=== PATIENT | female | born 1980 | race Caucasian/White ===

== ENCOUNTER 2024-11-02 05:50 | Inpatient (IN) | payer OTHER, SELFPAY ==
[2024-11-02] VITALS (11 sets, daily range): BP systolic 125–151; BP diastolic 94–109; PULSE 95–116; RESP 16–18; TEMP 36.4–36.7; O2SAT 89–97; BMI 22.8; BMI 22.3
--- NOTE | 2024-11-02 06:00 | EX.ED.DYSGE1 ---
HPI History of Present Illness Chief Complaint: Abd Pain PFSH PFS Medical History no medical history Home Medications ?Medication ?Instructions ?Recorded ?Last Taken ?Type NK 11/02/24 Unknown History Allergy/AdvReac Type Severity Reaction Status Date / Time No Known Allergies Allergy Verified 11/02/24 05:51 Family History no significant family his Surgical History no surgical history Social History Smoking Status: Never smoker EXAM Physical Exam Const Vital Signs: 11/02/24 05:51 11/02/24 05:55 Temperature 97.6 F L 97.6 F L Temperature Source Oral Oral Pulse Rate 116 H 114 H Respiratory Rate 18 18 Blood Pressure 151/109 H 151/109 H Blood Pressure Mean 123 123 Pulse Ox 95 97 Oxygen Delivery Method Room Air Room Air MDM MDM MDM Narrative Medical decision making narrative: HISTORY OF PRESENT ILLNESS: Chief complaint: Abdominal pain, cough, difficulty breathing 44-year-old female presents with 1 week of abdominal pain. She notes pain is severe and it causes her difficulty with sleeping. She also complains of cough and trouble breathing. Breathing issues started after abdominal pain worse when she ambulates. Denies bleeding diathesis. Denies vomiting or diarrhea. Denies history of abdominal surgeries. The patient denies recent surgery in the last 4 weeks or immobilization in the last 3 days, denies previous diagnosis of DVT or PE, hemoptysis, unilateral leg swelling or malignancy with treatment the last 6 months or palliative. No estrogen use noted. Patient denies sudden onset of pain, no tearing sensation, no migratory symptoms, no new numbness, weakness or loss of sensation. Patient denies family history or personal history of Connective tissue disorders (Marfan's Syndrome, Alo Danlos etc). REVIEW OF SYSTEMS: Pertinent positives: Abdominal pain, cough, shortness of breath Pertinent negatives: Chest pain, syncope PHYSICAL EXAM: Nursing triage notes reviewed, Vital signs reviewed Constitutional: please see mdm HENT: MMM Eyes: Pupils equal round and reactive to light, Extraocular muscles intact Neck: No stridor, no JVD, full neck ROM Lungs: Clear to auscultation, No wheezing or rales. No increased work of breathing, no conversational dyspnea, no accessory muscle use, no nasal flaring. No respiratory distress noted Heart: Regular rate and rhythm, No murmurs, No rubs and No gallops, 2+ distal pulses (radial, femoral, posterior tibial) in all extremities Abdomen: Soft, right lower quadrant TTP but no rigidity, rebound or guarding, no obvious peritoneal signs, no palpable pulsatile abdominal masses, no auscultated abdominal bruit : No CVAT Extremities: No edema Neuro: No new focal neurological deficits, cranial nerves II through XII intact, 5/5 strength in all present extremities. Intact sensation to light touch in all present extremities, 2+ reflexes bilateral patella tendons. Skin: No rash or lesions noted MEDICAL DECISION MAKING: Chief Complaint: please see HPI External records reviewed: Reviewed prior cardiovascular testing Factors affecting care: none reported Social determinants of health: none History obtained from others: none Consults: none MDM Narrative: Patient was initially tachycardic with heart rate of 116, hypertensive with blood pressure 181/109, otherwise afebrile and nontoxic-appearing. Exam with right upper quadrant TTP. I considered the following differential diagnosis: AAA, small bowel obstruction, abdominal perforation, appendicitis, pancreatitis, hepatobiliary pathology (acute cholecystitis), mesenteric ischemia, pathology (ie nephrolithiasis, pyelonephritis). ACS, arrhythmia, anemia, pneumonia. I obtained a broad lab and imaging workup to further elucidate etiology of the patient's complaints. Initially treated the patient 1 L normal saline, 4 mg IV morphine and 4 mg IV Zofran. ALL IMAGES (IF OBTAINED) HAVE BEEN PERSONALLY REVIEWED AND INTERPRETED BY MYSELF. CBC with leukocytosis, no anemia thrombocytopenia Lipase is wnl indicating no pancreatic inflammation. High-sensitivity troponin is negative, no evidence of myocardial ischemia EKG with sinus tachycardia rate 104, left ax deviation, prolonged QT interval QTc 481, no STEMI Awaiting remainder of labs including CMP, lipase, chest x-ray. The patient and/or family, caregivers express understanding. The patient and/or family, caregivers agrees with the plan. Shared decision making: I will have a discussion with the patient and or visitors regarding risk/benefits of further testing or admission. They will be made aware of of the risk/benefits inherent in this decision they will be given the opportunity to voice understanding. Total critical care time today provided was at least 0 minutes. This excludes separately billable procedures. Critical care time (if documented) is secondary to the patient having high probability of clinically significant/life threatening deterioration in the patient's condition which required my urgent intervention. Impression: 1. Right upper quadrant abdominal pain 2. Dyspnea 3. Tachycardia Dispo: Pending lab and imaging evaluation and final disposition. Signed out to a.m. physician. This note was generated with [employer] dictation software. It may contain incorrect words, spelling, and punctuation that were not noted in review of the chart prior to signing. Lab Data Labs: Laboratory Results - last 24 hr 11/02/24 05:56 WBC 9.6 RBC 5.14 Hgb 15.3 H Hct 45.5 MCV 88.5 MCH 29.8 MCHC 33.6 RDW Std Deviation 43.3 RDW Coeff of Raquel 13.4 Plt Count 288 MPV 12.6 H Immature Gran % (Auto) 0.300 Neut % (Auto) 61.3 Lymph % (Auto) 30.1 [place] % (Auto) 7.1 Eos % (Auto) 0.7 Baso % (Auto) 0.5 Absolute Neuts (auto) 5.9 Absolute Lymphs (auto) 2.88 Nucleated RBC % 0 Discharge Plan Triage Chief Complaint: Abd Pain ED Provider: Perico Ballesteros Dx/Rx/DC Orders Prescriptions: No Action NK Primary Care Provider: Daev Woods Referrals: Dave Woods DO [Primary Care Provider] - Print Language: Tuvaluan
--- NOTE | 2024-11-02 06:27 | EKG12_ITS ---
Test Reason : GENERAL Blood Pressure : */* mmHG Vent. Rate : 104 BPM Atrial Rate : 104 BPM P-R Int : 174 ms QRS Dur : 80 ms QT Int : 366 ms P-R-T Axes : 31 -23 88 degrees QTcB Int : 481 ms Sinus tachycardia Possible Left atrial enlargement ST & T wave abnormality, consider lateral ischemia Abnormal ECG Confirmed by ANGELITA YEN, DAFNE ([id number]), staff editor EDWARD ESCALONA ([id number]) on 11/05/2024 11:52:35 AM Referred By: Confirmed By: DAFNE GOLDSTEIN MD
[2024-11-02] MEDS: Ondansetron 4 MG/2 ML Vial IV (06:31)
[2024-11-02] MEDS: 0.9% Normal Saline (1000mL) 1,000 ML 999 ML IV (06:31)
--- NOTE | 2024-11-02 06:34 | US_ITS ---
PROCEDURE: GALLBLADDER 11/02/2024 REASON FOR EXAM: RUQ TTP COMPARISON: None. FINDINGS: Real-time ultrasound images. Hepatomegaly measuring 20.9 cm. Dilated supra hepatic IVC suggestive of dysfunction of the right cardiac cavities. Unremarkable flow in the main portal vein. Normal gallbladder wall thickness measuring 2.3 mm. Negative sonographic Gutierrez. No evidence of cholelithiasis or acute cholecystitis. Unremarkable pancreas. Unremarkable right kidney measuring 10.4 x 6.7 x 3.8 cm. Normal right renal cortical thickness measuring 1.2 cm. No evidence of right nephrolithiasis. Simple cyst in the upper pole of the right kidney measuring 1.6 x 1.6 x 0.8 cm. Right pleural effusion is noted. US/Gallbladder IMPRESSION: 1. Hepatomegaly. 2. Dilated supra hepatic IVC suggestive of dysfunction of the right cardiac cav ities. 3. No evidence of cholelithiasis or acute cholecystitis. 4. Right pleural effusion. Reading Location: [facility]
[2024-11-02 06:38] LABS: Absolute Lymphocyte Count 2.88 X10^3/uL (0.83-4.51); Absolute Neutrophil Count 5.9 X10^3/uL (2.0-7.7); Basophil# 0.05 X10^3/uL; Basophil% 0.5 % (0-1); Eosinophil# 0.07 X10^3/uL; Eosinophils% 0.7 % (0-5); Hematocrit 45.5 % (37-47); Hemoglobin 15.3 g/dL (12.0-15.0); Lymphocyte # 2.88 X10^3/ul (0.83-4.51); Lymphocyte % 30.1 % (19-41); Mean Corp Hgb Conc 33.6 g/dL (32-36); Mean Corpuscular Hgb 29.8 pg (27.0-32.0); Mean Corpuscular Volume 88.5 fL (81-99); Mean Platelet Vol. 12.6 fl (6.2-12.0); Monocyte# 0.68 X10^3/uL; Monocyte% 7.1 % (0-10); NRBC Flagged by Analyzer 0 % (0-5); Neutrophil # 5.86 X10^3/uL (2.7-7.7); Neutrophil % 61.3 % (47-70); Platelet Count 288 K/mm3 (150-450); RBC Distribution Width CV 13.4 % (11.6-14.6); RBC Distribution Width SD 43.3 fl (35.1-43.9); Red Blood Count 5.14 M/mm3 (4.2-5.4); White Blood Count 9.6 K/mm3 (4.4-11.0)
[2024-11-02 06:55] LABS: AST(SGOT) 33 U/L (<=31); Alanine Aminotransfer ALT/SGPT 60 U/L (<=34); Albumin, Serum 4.4 g/dL (3.5-5.0); Alkaline Phosphatase 61 U/L (35-104); Anion Gap 14 (5-15); BUN 11 mg/dL (4-19); BUN/Creat Ratio 17.8 RATIO (10-20); Bilirubin, Direct 0.31 mg/dL (0.00-0.30); Calcium,Total 9.1 mg/dL (7.6-11.0); Carbon Dioxide 20.9 mmol/L (21.0-32.0); Chloride 103 mmol/L (98-108); Creatinine, Serum 0.61 mg/dL (0.70-1.20); EST Glomerular Filtration Rate 112 (>60); Estimated Creatinine Clearance 120.43 ml/min (50-250); Globulin 2.5 g/dL (2.2-4.2); Glucose 122 mg/dL (70-99); Lipase 15 U/L (13-75); Potassium 3.6 mmol/L (3.3-5.1); Protein, Total 6.9 g/dL (5.9-8.4); Sodium Level 138 mmol/L (133-145); Troponin T High Sensitivity 12 ng/L (<=14)
--- NOTE | 2024-11-02 06:58 | RAD_ITS ---
PROCEDURE: CHEST 1 VIEW (PORTABLE) 11/02/2024 REASON FOR EXAM: SOB TECHNIQUE: Frontal view of the chest. COMPARISON: None. FINDINGS: Moderate cardiomegaly. Moderate central pulmonary venous congestion. Minimal bilateral pleural effusions. Passive atelectatic airspace disease of the lower lobes. Normal mediastinum and mello. Normal visualized pulmonary arteries. Normal visualized aortic arch and descending thoracic aorta. Normal visualized thoracic spine. Normal visualized ribs, clavicles, and shoulders. There is no demonstrated abnormality of the visualized soft tissue structures of the upper abdomen. RAD/Chest 1 View (Portable) IMPRESSION: 1. Moderate cardiomegaly. 2. Moderate central pulmonary venous congestion. 3. Minimal bilateral pleural effusions. 4. Passive atelectatic airspace disease of the lower lobes. Reading Location: [place] [id number]
[2024-11-02] MEDS: Morphine 4 MG/ML Syringe IV (07:10)
[2024-11-02 07:24] LABS: D-Dimer Quantitative (DVT/PE) 1.05 FEU/ug/m (0.27-0.49)
--- NOTE | 2024-11-02 07:27 | CT_ITS ---
PROCEDURE: CTA CHEST W/WO CONTRAST 11/02/2024 REASON FOR EXAM: SOB, ELEVATED DIMER TECHNIQUE: CTA axial imaging of the chest with intravenous contrast. Multiplanar and multisequence images were obtained. 3D, 3D post processing, 3D reconstructions, Maximum intensity projection (MIPs) Volume rendering and Shaded surface rendering was provided. PATIENT PREPARATION: Per protocol CONTRAST: Omnipaque 350 VOLUME: 100 mL Not Provided Gauge IV One or more dose reduction techniques were used (e.g., Automated exposure control, adjustment of the mA and/or kV according to patient size, use of iterative reconstruction technique). COMPARISON: None FINDINGS: Hardware: None Lymph nodes: No suspicious adenopathy. Heart: Mild cardiomegaly. No coronary artery calcifications. Thoracic Aorta: No thoracic aortic aneurysm or dissection. Pulmonary Vessels: No large central pulmonary emboli are identified. Contrast timing is suboptimal for evaluation of more distal branches. Most Proximal Level of Embolus (if embolus present): None Lungs and Airways: Central airways are patent without endobronchial lesions. Diffuse mild-moderate interlobular septal thickening. Moderate right and small left pleural effusions with atelectasis. Scattered ground-glass opacities, predominantly in the lower lobes constellation of findings, compatible with pulmonary edema. No pneumothorax. Upper Abdomen: No acute findings in the upper abdomen. Bones: Bone windows are unremarkable. CT/CTA Chest W/WO Contrast IMPRESSION: 1. No evidence of acute pulmonary embolism. 2. Moderate right and small left pleural effusions, bibasilar atelectasis, mult ifocal ground-glass opacities and interlobular septal thickening. Constellation of findings, compatible with pulmonary edema. 3. Mild cardiomegaly. Reading [facility]
[2024-11-02 07:37] LABS: Bacteria 0 SEEN /hpf (None Seen)
[2024-11-02 08:10] LABS: Color, Urine Yellow (Yellow); Glucose, Dipstick Normal (Normal); Ketone-Dipstick 5 mg/dl (Negative); Leukocyte Esterase-Dipstick Negative /ul (Negative); Nitrite-Dipstick Negative (Negative); Occult Blood-Urine 25 /ul (Negative); Protein-Dipstick 100 mg/dl (Negative); Urine Bilirubin Dipstick Negative (Negative); Urine Clarity Clear (Clear); Urine Urobilinogen Normal (Normal)
[2024-11-02 08:21] LABS: Mucous, Urine 2+ /hpf (<or=2+); Red Blood Cells-Urine 0-5 SEEN /hpf (0-5); Squamous Epithelial Cells - UA 0-5 SEEN /hpf (5-10); White Blood Cells 0-5 SEEN /hpf (0-5)
[2024-11-02 08:50] LABS: Pro- Brain NATRIURETIC PEPTIDE 4866 pg/mL (<=450)
[2024-11-02] MEDS: Furosemide 40 MG/4 ML Vial IV ×3 (09:16→21:05)
--- NOTE | 2024-11-02 09:37 | HP.PCM.HOS_ITS ---
HPI - General General Date of Admission: 11/02/24 Date of Service: 11/02/24 Chief Complaint: Right upper quadrant pain/shortness of breath HPI Narrative VIRIDIANA WICK, is a 44 F who presented to the emergency room apartment at [facility] on 11/02/2024 with a chief complaint of right upper quadrant pain and shortness of breath. She states over the last 4 months she has noticed that she has had slowly increasing swelling, weight gain, exertional shortness of breath. She does have a family history of heart disease however is unable to describe what kind of heart disease. She does not have any chest pain. She has no nausea or vomiting. She does complain of some tightness around her abdomen when she walks and orthopnea. She has never smoked. Her last was 9 years ago. She does not have any recent viral illnesses. Vital signs on presentation showed temperature of 97.6, heart rate 116, respiratory rate was 18, blood pressure was 151/109 and pulse ox was 95% on room air. CBC shows erythrocytosis but is otherwise unremarkable. Chemistry panel shows normal renal function. LFTs are slightly abnormal with an AST of 33, ALT of 60, direct bilirubin of 0.31 with a normal total bilirubin. Troponin was 12 but her BNP was markedly elevated at 4866. Her UA is not consistent with infection. Chest x-ray showed moderate cardiomegaly with moderate central pulmonary venous congestion, bilateral pleural effusions right greater than left and compression atelectasis from effusions. Gallbladder ultrasound was done due to right upper quadrant pain and showed hepatomegaly with a dilated suprahepatic IVC and a right pleural effusion. CTA of the chest showed moderate right and small left pleural effusion with compressive atelectasis and findings consistent with pulmonary edema, mild cardiomegaly and pulmonary congestion. No PE was identified. EKG was sinus tachycardia with normal intervals and T wave inversions in the lateral leads. No previous EKG is available for comparison. [facility] Medical History no medical history no medical history Home Medications ?Medication ?Instructions ?Recorded ?Last Taken ?Type REDOX 4 oz PO DAILY SUPP 11/02/24 11/01/24 History aloe vera 25 mg capsule 25 mg PO DAILY 11/02/24/12/31 History vitamin B complex (Complex B-100 1 tab PO DAILY 11/01/24 History tablet,extended release) Allergy/AdvReac Type Severity Reaction Status Date / Time No Known Allergies Allergy Verified 11/02/24 05:51 Family History (Updated 11/02/24 @ 16:[address] Caitlyn Joel DO) Other Heart disease Family History no significant family his Surgical History no surgical history no surgical history Social History (Updated 11/02/24 @ 16:[address] Caitlyn Joel DO) household members: family housing: house current occupational status: unemployed other: [employer] Smoking Status: Never smoker alcohol intake: never substance use type: does not use ROS Constitutional Constitutional: Reports change in weight and fatigue; Denies anorexia, chills, fever(s), malaise, night sweats, weakness or other Eyes Eyes: Denies blurry vision, change in eye color, change in vision, discharge from eye(s), double vision, erythema, eye pain, loss of vision or other ENT HEENT: Denies abnormal hearing, dysphagia, ear pain, epistaxis, headache(s), hearing loss, nasal congestion, nasal discharge, post nasal drip, sinus pressure, sore throat or other Cardiovascular Cardiovascular: Reports edema and orthopnea; Denies chest pain, claudication, dyspnea on exertion, lightheadedness, palpitations, paroxysmal nocturnal dyspnea, rapid heart rate, syncope or other Respiratory/Chest Respiratory/Chest: Reports cough and shortness of breath with exertion; Denies dyspnea, excessive phlegm production, hemoptysis, productive cough, shortness of breath at rest, wheezing or other Gastrointestinal Gastrointestinal: Reports abdominal pain; Denies coffee ground emesis, constipation, diarrhea, dyspepsia, hematemesis, hematochezia, loose stools, melena, nausea, vomiting or other Genitourinary Genitourinary: Denies burning urination, difficulty urinating, dysuria, hematuria, nocturia, urinary frequency, urinary hesitancy, urinary incontinence, urinary urgency or other Musculoskeletal Musculoskeletal: Denies arthralgias, back pain, joint pain, joint stiffness, joint swelling, myalgias, neck pain or other Neurologic Neurologic: Denies abnormal gait, abnormal speech, confusion, disequilibrium, dizziness, focal weakness, headache(s), numbness, paresthesias, seizure-like activity, seizures, syncope, tingling, tremor(s) or other Psychiatric Psychiatric: Denies anxiety, depression, homicidal ideation, suicidal ideation or other Endocrine Endocrinology: Denies change in body appearance, cold intolerance, excessive sweating, heat intolerance, polydipsia, polyuria or other Hematologic/Lymphatic Hematologic/Lymphatic: Denies anemia, easy bleeding, easy bruising, lymphadenopathy or other Allergic/Immunologic Allergic/Immunologic: Denies rhinitis, hives, eczemia, asthma or other Vital Signs Vital Signs Vital Signs: 11/02/24 05:51 11/02/24 05:55 11/02/24 07:34 Temperature 97.6 F L 97.6 F L Temperature Source Oral Oral Pulse Rate 116 H 114 H Respiratory Rate 18 18 Blood Pressure 151/109 H 151/109 H Blood Pressure Mean 123 123 Pulse Ox 95 97 89 Oxygen Delivery Method Room Air Room Air Room Air 11/02/24 07:37 11/02/24 08:47 Temperature Temperature Source Pulse Rate 96 Respiratory Rate 18 Blood Pressure 127/96 H Blood Pressure Mean 106 Pulse Ox 92 96 Oxygen Delivery Method Room Air Room Air Weight Weight: 70 kg Body Mass Index (BMI) 22.8 Physical Exam Const alert, oriented x3, no apparent distress, average body habitus and well nourished; Negative for healthy appearing Constitutional Narrative: Middle-aged, Church, white female, sitting up in bed, appears somewhat older than stated age, at bedside, appears nontoxic, pleasant General Appearance: cooperative HEENT normocephalic, head/scalp atraumatic, hearing grossly normal bilaterally and moist oral mucous membranes HEENT Narrative: Dark circles around both eyes, Mallampati is 2, no thrush Eyes EOMs intact bilaterally and conjunctivae normal Eyes Narrative: No scleral icterus Neck supple Neck Narrative: JVD is present, positive hepatojugular reflex, trachea midline, no thyroid enlargement noted Resp normal respiratory effort, no retractions, no use of accessory muscles and No clear to auscultation bilaterally Resp Narrative: Diminished bases bilaterally with crackles at bases bilaterally Auscultation: crackles; Negative for rhonchi or wheezes Cardio regular rhythm, S1 normal heart sound, S2 normal heart sound, no murmurs, no rub and no clicks; Negative for regular rate or no gallops Cardio Narrative: Mild tachycardia, positive S3, no ectopy noted GI normal to inspection, nondistended, normoactive bowel sounds and soft to palpation GI Narrative: Tenderness right upper quadrant Extremity Extremity Narrative: Bilateral lower extremity pitting edema at ankles trace to 1+ no cyanosis or clubbing Skin no jaundice, no petechiae and no mottling Skin Narrative: Skin is pale with no significant changes related to sun exposure Neuro oriented x3, moves all extremities and no focal motor deficits Speech: speech normal Psych affect normal Psych Narrative: Very pleasant, interacts appropriately Results Lab / Micro Data 11/02/24 05:56 11/02/24 05:56 Labs: Laboratory Results - last 24 hr 11/02/24 05:56: WBC 9.6, RBC 5.14, Hgb 15.3 H, Hct 45.5, MCV 88.5, MCH 29.8, MCHC 33.6, RDW Std Deviation 43.3, RDW Coeff of Raquel 13.4, Plt Count 288, MPV 12.6 H, Immature Gran % (Auto) 0.300, Neut % (Auto) 61.3, Lymph % (Auto) 30.1, [place] % (Auto) 7.1, Eos % (Auto) 0.7, Baso % (Auto) 0.5, Absolute Neuts (auto) 5.9, Absolute Lymphs (auto) 2.88, Nucleated RBC % 0, D-Dimer Quant (PE/DVT) 1.05 H*, Sodium 138, Potassium 3.6, Chloride 103, Carbon Dioxide 20.9 L, Anion Gap 14, BUN 11, Creatinine 0.61 L, Estim Creat Clear Calc 120.43, Est GFR (MDRD) Non-Af 112, BUN/Creatinine Ratio 17.8, Glucose 122 H, Calcium 9.1, Total Bilirubin 0.80, Direct Bilirubin 0.31 H, AST 33 H, ALT 60 H, Alkaline Phosphatase 61, Troponin T High Sens 12, NT pro BNP II 4866 H, Total Protein 6.9, Albumin 4.4, Globulin 2.5, Lipase 15 11/02/24 07:30: Urine Color Yellow, Urine Clarity Clear, Urine pH 5.0, Ur Specific [place] 1.030, Urine Protein 100 H, Urine Glucose (UA) Normal, Urine Ketones 5 H, Urine Occult Blood 25 H, Urine Nitrite Negative, Urine Bilirubin Negative, Urine Urobilinogen Normal, Ur Leukocyte Esterase Negative, Urine RBC 0-5 SEEN, Urine WBC 0-5 SEEN, Ur Squamous Epith Cells 0-5 SEEN, Urine Bacteria 0 SEEN, Urine Mucus 2+ Imaging Radiology Impression Gallbladder Ultrasound 11/02/24 06:34 IMPRESSION: 1. Hepatomegaly. 2. Dilated supra hepatic IVC suggestive of dysfunction of the right cardiac cavities. 3. No evidence of cholelithiasis or acute cholecystitis. 4. Right pleural effusion. Reading Location: [place] [id number] Chest X-Ray 11/02/24 06:58 IMPRESSION: 1. Moderate cardiomegaly. 2. Moderate central pulmonary venous congestion. 3. Minimal bilateral pleural effusions. 4. Passive atelectatic airspace disease of the lower lobes. Reading Location: [place] [address] Chest CTA 11/02/24 07:27 IMPRESSION: 1. No evidence of acute pulmonary embolism. 2. Moderate right and small left pleural effusions, bibasilar atelectasis, multifocal ground-glass opacities and interlobular septal thickening. Constellation of findings, compatible with pulmonary edema. 3. Mild cardiomegaly. Reading Location: [facility] Assessment & Plan Assessment/Plan (1) Pleural effusion, bilateral: (2) Elevated brain natriuretic peptide (BNP) level: (3) Abnormal EKG: (4) Exertional dyspnea: (5) Orthopnea: (6) Edema: (7) Erythrocytosis: (8) Tachycardia: (9) Elevated blood pressure reading: PLAN: Plan Shortness of breath/edema/pleural effusion/elevated BNP - Suspect related to acute decompensated heart failure of unknown type - Check echocardiogram - Lasix 40 mg 3 times daily - Check TSH to exclude high-output heart failure from thyroid disease - Fluid restriction to 1750 cc daily - Sodium restricted diet - Lower extremity Reginald bandages - Start metoprolol 25 mg p.o. twice daily - Once more stable could consider starting Jardiance Bilateral pleural effusions - suspect related to above - Hopefully will improve with diuresis - If not right pleural effusion may need thoracentesis Abnormal EKG - EKG shows T wave inversion in lateral leads - Should receive ischemic workup with stress test once more clinically stable with regards to her heart failure -Consider next 24 to 48 hours - Will cycle cardiac enzymes - Check lipid profile Right upper quadrant pain/mild transaminitis - Suspect related to passive congestion - Ultrasound is unremarkable other than hepatomegaly which again may be related to passive congestion Tachycardia - Suspect related to underlying etiology - Metoprolol 25 p.o. twice daily initiated for heart failure as patient is not severely decompensated - Continue to monitor on telemetry Elevated blood pressure without diagnosis of hypertension - Metoprolol added - Suspect may need REGINALD inhibitor and Aldactone if echo shows depressed EF to establish goal-directed therapy -Would consider adding this if blood pressure remains elevated DVT prophylaxis - Subcu enoxaparin 40 daily CODE STATUS - Full code Charges/Coding Visit Charges Inpatient E&M: 85682 Init Hosp L2
--- NOTE | 2024-11-02 10:26 | ECHOCS_ITS ---
Reason For Study Reason For Study: CHF Procedure This was a 2D Doppler, Color Flow transthoracic echocardiogram. Contrast injection was performed. Exam performed portable in patient room. Left Ventricle Moderately dilated left ventricle. There appears to be a small LV apical thrombus. The estimated ejection fraction is 20 %. There is evidence of diastolic dysfunction. There is severe global hypokinesis of the left ventricle. Right Ventricle Normal RV size. Normal systolic function. Atria The left and right atria are normal. No doppler evidence for ASD. Mitral Valve There is no mitral valve stenosis. Trivial mitral valve insufficiency. Tricuspid Valve There is no tricuspid stenosis. Trivial tricuspid valve insufficiency. Pulmonary artery systolic pressure is 20 mmHg. Aortic Valve Trisinus/trileaflet aortic valve. There is no aortic stenosis. No aortic valve insufficiency. Pulmonic Valve There is no pulmonic valvular stenosis. No pulmonic valve insufficiency. Great Vessels Normal aortic root. Pericardium/Pleural Trivial pericardial effusion. Medication Diluted definity 3ml given slow IV push to enhance endocardial definition. MMode/2D Measurements & Calculations LVIDd: 5.1 cm IVSd: 0.92 cm Ao root diam: 3.0 cm LVIDs: 4.7 cm LVPWd: 0.91 cm RVDd: 2.7 cm FS: 7.8 % LAV(MOD-bp): 33.1 ml LVAd ap4: 31.6 cm2 SV(MOD-sp4): 28.2 ml LAV(MOD-bp) Indexed: 17.9 ml/m2 LVLd ap4: 7.0 cm SI(MOD-sp4): 15.3 ml/m2 LAV(MOD-sp2): 48.0 ml EDV(MOD-sp4): 114.7 ml LAV(MOD-sp4): 23.5 ml EDV(sp4-el): 120.1 ml LVAs ap4: 26.3 cm2 LVLs ap4: 6.7 cm ESV(MOD-sp4): 86.5 ml ESV(sp4-el): 88.1 ml EF(MOD-sp4): 24.6 % EF(sp4-el): 26.6 % SV(sp4-el): 32.0 ml LA A4 area: 11.5 cm2 LA dimension(2D): 3.2 cm RA A4 area: 9.3 cm2 TAPSE: 1.2 cm Doppler Measurements & Calculations MV E max mayo: 48.3 cm/sec Lat Peak E' Mayo: 5.4 cm/sec Med Peak E' Mayo: 7.0 cm/sec E/E' lat: 8.9 E/E' med: 6.9 MV V2 max: 81.7 cm/sec Ao V2 max: 105.5 cm/sec LV V1 max: 84.2 cm/sec MV max P.7 mmHg Ao max P.4 mmHg LV V1 max P.8 mmHg MV V2 mean: 50.6 cm/sec Ao V2 mean: 76.3 cm/sec LV V1 mean P.6 mmHg MV mean P.2 mmHg Ao mean P.6 mmHg LV V1 mean: 58.7 cm/sec MV V2 VTI: 13.6 cm Ao V2 VTI: 18.9 cm LV V1 VTI: 13.9 cm AV (velocity ratio): 0.73 MR max mayo: 433.8 cm/sec PA V2 max: 82.4 cm/sec TR max mayo: 208.4 cm/sec MR max P.4 mmHg TR max P.4 mmHg MR mean mayo: 321.7 cm/sec MR mean P.8 mmHg MR VTI: 125.1 cm ECHO/Echo Complete W/ Contrast Interpretation Summary Moderately dilated left ventricle. The estimated ejection fraction is 20 %. There is severe global hypokinesis of the left ventricle. There is evidence of diastolic dysfunction. Trivial mitral valve insufficiency. There appears to be a small LV apical thrombus Ordering Physician: Caitlyn Joel Performed By: Collin Rooney RCS
[2024-11-02] MEDS: Enoxaparin 40 MG/0.4 ML Syringe SC (11:07)
[2024-11-02] MEDS: Acetaminophen 325 MG Tablet 650 MG PO ×2 (11:09→20:53)
[2024-11-02] MEDS: 0.9% Saline Lock 10 ML Syringe IV (14:07)
[2024-11-02] MEDS: Metoprolol Tartrate 25 MG Tablet 12.5 MG PO (16:45)
[2024-11-02] MEDS: oxyCODONE 5 MG Tablet PO (16:48)
[2024-11-02 17:29] LABS: Troponin T High Sens 2 HR 13 ng/L (<=14)
[2024-11-02 20:09] LABS: Troponin T High Sens 4 HR 13 ng/L (<=14)
[2024-11-02] MEDS: Metoprolol Tartrate 25 MG Tablet PO (21:05)
[2024-11-02 21:44] LABS: ALB/GLOB Ratio 1.9 RATIO (0.9-2.4); AST(SGOT) 27 U/L (<=31); Alanine Aminotransfer ALT/SGPT 62 U/L (<=34); Albumin, Serum 4.5 g/dL (3.5-5.0); Alkaline Phosphatase 59 U/L (35-104); Anion Gap 14 (5-15); BUN 8 mg/dL (4-19); BUN/Creat Ratio 11.5 RATIO (10-20); Calcium,Total 8.9 mg/dL (7.6-11.0); Carbon Dioxide 26.6 mmol/L (21.0-32.0); Chloride 98 mmol/L (98-108); Creatinine, Serum 0.73 mg/dL (0.70-1.20); EST Glomerular Filtration Rate 103 (>60); Estimated Creatinine Clearance 100.64 ml/min (50-250); Globulin 2.3 g/dL (2.2-4.2); Glucose 109 mg/dL (70-99); Phosphorus 3.8 mg/dL (2.7-4.5); Potassium 3.6 mmol/L (3.3-5.1); Protein, Total 6.8 g/dL (5.9-8.4); Sodium Level 138 mmol/L (133-145); Total Bilirubin 0.76 mg/dL (0.00-1.30)
[2024-11-03] VITALS (8 sets, daily range): BP systolic 103–127; BP diastolic 74–104; PULSE 87–138; RESP 15–16; TEMP 36.4; O2SAT 94–96; BMI 22.2
--- NOTE | 2024-11-03 03:35 | EKG12_ITS ---
Test Reason : PRE HEART CATH Blood Pressure : */* mmHG Vent. Rate : 95 BPM Atrial Rate : 95 BPM P-R Int : 174 ms QRS Dur : 88 ms QT Int : 384 ms P-R-T Axes : 25 -54 212 degrees QTcB Int : 482 ms Normal sinus rhythm Left anterior fascicular block T wave abnormality, consider inferior ischemia T wave abnormality, consider anterolateral ischemia Prolonged QT Abnormal ECG When compared with ECG of 03-Nov-2024 03:41, MANUAL COMPARISON REQUIRED DATA IS UNCONFIRMED Confirmed by PERLITA YEN, ARGELIA ([id number]), news assignment editor EDWARD ESCALONA ([id number]) on 11/05/2024 1:23:26 PM Referred By: Confirmed By: ARGELIA BHAT MD
--- NOTE | 2024-11-03 03:41 | EKG12_ITS ---
Test Reason : TACHY Blood Pressure : */* mmHG Vent. Rate : 129 BPM Atrial Rate : 129 BPM P-R Int : 152 ms QRS Dur : 86 ms QT Int : 348 ms P-R-T Axes : * -39 3 degrees QTcB Int : 509 ms Atrial tachycardia Left axis deviation Minimal voltage criteria for LVH, may be normal variant ( [place] product ) Anterior infarct , age undetermined ST & T wave abnormality, consider lateral ischemia Abnormal ECG Confirmed by PERLITA YEN, ARGELIA ([id number]), editorial director CATIA SNYDER ([id number]) on 11/06/2024 1:36:13 PM Referred By: KENYETTA Confirmed By: ARGELIA BHAT MD
[2024-11-03] MEDS: Metoprolol Tartrate 5 MG/5 ML Vial 2.5 MG IV (03:56)
[2024-11-03] MEDS: 0.9% Saline Lock 10 ML Syringe IV (03:57)
[2024-11-03 04:24] LABS: Absolute Lymphocyte Count 1.89 X10^3/uL (0.83-4.51); Basophil# 0.04 X10^3/uL; Basophil% 0.5 % (0-1); Eosinophil# 0.06 X10^3/uL; Eosinophils% 0.7 % (0-5); Hematocrit 44.3 % (37-47); Hemoglobin 15.2 g/dL (12.0-15.0); Lymphocyte # 1.89 X10^3/ul (0.83-4.51); Lymphocyte % 21.4 % (19-41); Mean Corp Hgb Conc 34.3 g/dL (32-36); Mean Corpuscular Hgb 29.8 pg (27.0-32.0); Mean Corpuscular Volume 86.9 fL (81-99); Mean Platelet Vol. 10.9 fl (6.2-12.0); Monocyte# 0.87 X10^3/uL; Monocyte% 9.8 % (0-10); NRBC Flagged by Analyzer 0 % (0-5); Neutrophil # 5.96 X10^3/uL (2.7-7.7); Neutrophil % 67.3 % (47-70); Platelet Count 415 K/mm3 (150-450); RBC Distribution Width CV 13.2 % (11.6-14.6); RBC Distribution Width SD 42.1 fl (35.1-43.9); White Blood Count 8.9 K/mm3 (4.4-11.0)
[2024-11-03 04:45] LABS: Troponin T High Sensitivity 11 ng/L (<=14)
[2024-11-03 04:48] LABS: ALB/GLOB Ratio 1.9 RATIO (0.9-2.4); AST(SGOT) 32 U/L (<=31); Alanine Aminotransfer ALT/SGPT 60 U/L (<=34); Albumin, Serum 4.4 g/dL (3.5-5.0); Alkaline Phosphatase 57 U/L (35-104); Anion Gap 12 (5-15); BUN 8 mg/dL (4-19); Calcium,Total 9.1 mg/dL (7.6-11.0); Carbon Dioxide 28.9 mmol/L (21.0-32.0); Chloride 97 mmol/L (98-108); Creatinine, Serum 0.72 mg/dL (0.70-1.20); EST Glomerular Filtration Rate 105 (>60); Estimated Creatinine Clearance 102.03 ml/min (50-250); Globulin 2.3 g/dL (2.2-4.2); Glucose 104 mg/dL (70-99); Magnesium 1.8 mg/dL (1.5-2.2); Phosphorus 3.5 mg/dL (2.7-4.5); Potassium 3.4 mmol/L (3.3-5.1); Protein, Total 6.7 g/dL (5.9-8.4); Sodium Level 138 mmol/L (133-145); Total Bilirubin 0.88 mg/dL (0.00-1.30)
[2024-11-03 05:08] LABS: Cholesterol 215 mg/dL (<=200); High Density Lipoprotein 48 mg/dL; Low Density Lipoprotein Calc. 153 mg/dL; Triglycerides 69 mg/dL; Very Low Density Lipoprotein 14 mg/dL (5-40); cholesterol:hdl ratio screen 4.47
[2024-11-03] MEDS: Furosemide 40 MG/4 ML Vial IV ×2 (05:52→13:37)
[2024-11-03 09:02] LABS: Troponin T High Sens 4 HR 11 ng/L (<=14)
[2024-11-03] MEDS: Enoxaparin 40 MG/0.4 ML Syringe SC (09:44)
[2024-11-03] MEDS: Metoprolol Tartrate 25 MG Tablet PO ×2 (09:44→21:08)
--- NOTE | 2024-11-03 11:12 | PCM.PN.HOSP ---
Reason for Visit Reason for Visit: Diagnoses Secondary polycythemia (11/02/24) Pleural effusion, not elsewhere classified (11/02/24) Tachycardia, unspecified (11/02/24) Elevated blood-pressure reading, without diagnosis of hypertension (11/02/24) Orthopnea (11/02/24) Other forms of dyspnea (11/02/24) Edema, unspecified (11/02/24) Other specified abnormal findings of blood chemistry (11/02/24) Abnormal electrocardiogram [ECG] [EKG] (11/02/24) Subjective Subjective Saw patient at bedside this morning, present. Patient was having her echo done when I saw her. She reported very good urine output on the IV Lasix and felt better today compared to yesterday. Denied any shortness of breath at rest or any upper abdominal pain at this time. Noted that she has not had much of cough or sputum production this morning. She denied any other acute concerns at this time. Reevaluated patient in the afternoon and was noted that patient had developed sinus tachycardia with rate to the 120s to 130s. She noted some lightheadedness and dizziness with this. Was suspected that patient had been over diuresed given significant urine output on IV Lasix. Lasix was discontinued and patient was given IV fluids back. Objective Data Objective Data Vital Signs: Vital Signs Temp Pulse Resp BP Pulse Ox O2 Del Method 97.6 F L 110 H 15 103/74 94 Room Air 11/03/24 09:15 11/03/24 09:44 11/03/24 09:15 11/03/24 09:15 11/03/24 09:15 11/03/24 09:15 Oxygen Delivery Method Room Air Weight: 68.4 kg Body Mass Index (BMI) 22.2 Intake & Output: Intake and Output for Last 24 Hours 11/01/24 11/02/24 11/03/24 23:59 23:59 23:59 Intake Total 1000 / 1000 Balance 1000 / 1000 Lab / Micro Data 11/03/24 04:14 11/03/24 04:14 Labs: Laboratory Results - last 24 hr 11/02/24 05:56: Free T4 1.20 11/02/24 17:05: Troponin T Hi Sens 2 Hr 13 11/02/24 19:48: Sodium 138, Potassium 3.6, Chloride 98, Carbon Dioxide 26.6, Anion Gap 14, BUN 8, Creatinine 0.73, Estim Creat Clear Calc 100.64, Est GFR (MDRD) Non-Af 103, BUN/Creatinine Ratio 11.5, Glucose 109 H, Calcium 8.9, Phosphorus 3.8, Total Bilirubin 0.76, AST 27, ALT 62 H, Alkaline Phosphatase 59, Troponin T Hi Sens 4Hr 13, Total Protein 6.8, Albumin 4.5, Globulin 2.3, Albumin/Globulin Ratio 1.9 11/03/24 04:14: WBC 8.9, RBC 5.10, Hgb 15.2 H, Hct 44.3, MCV 86.9, MCH 29.8, MCHC 34.3, RDW Std Deviation 42.1, RDW Coeff of Raquel 13.2, Plt Count 415, MPV 10.9, Immature Gran % (Auto) 0.300, Neut % (Auto) 67.3, Lymph % (Auto) 21.4, [place] % (Auto) 9.8, Eos % (Auto) 0.7, Baso % (Auto) 0.5, Absolute Neuts (auto) 6.0, Absolute Lymphs (auto) 1.89, Nucleated RBC % 0, Sodium 138, Potassium 3.4, Chloride 97 L, Carbon Dioxide 28.9, Anion Gap 12, BUN 8, Creatinine 0.72, Estim Creat Clear Calc 102.03, Est GFR (MDRD) Non-Af 105, BUN/Creatinine Ratio 11.0, Glucose 104 H, Calcium 9.1, Phosphorus 3.5, Magnesium 1.8, Total Bilirubin 0.88, AST 32, ALT 60 H, Alkaline Phosphatase 57, Troponin T High Sens 11 D, Total Protein 6.7, Albumin 4.4, Globulin 2.3, Albumin/Globulin Ratio 1.9, Triglycerides 69, Cholesterol 215 H, LDL Cholesterol, Calc 153, VLDL Cholesterol 14, HDL Cholesterol 48, Cholesterol/HDL Ratio 4.47 11/03/24 08:06: Troponin T Hi Sens 4Hr 11 Physical Exam Const alert, oriented x3, no apparent distress, average body habitus, healthy appearing and well nourished Constitutional Narrative: Pleasant middle-aged female, mildly fatigued appearing but otherwise sitting back comfortably in bed, conversing normally, in no acute distress. General Appearance: cooperative, comfortable, well kempt and well developed HEENT normocephalic, head/scalp atraumatic, hearing grossly normal bilaterally, nasal mucous membranes and turbinates normal and moist oral mucous membranes Eyes PERRL, EOMs intact bilaterally and conjunctivae normal Neck full ROM Chest inspection of chest normal Resp normal respiratory effort and no use of accessory muscles Resp Narrative: Breathing comfortably on room air at rest. Mild decreased breath sounds in bilateral lung bases but no wheezing or crackles noted. Cardio regular rate, regular rhythm, no murmurs and peripheral pulses 2+ throughout GI normal to inspection, nondistended, normoactive bowel sounds, soft to palpation, non-tender and non-distended Back/Spine normal ROM Extremity normal to inspection, full ROM and no pedal edema Skin no rashes or lesions noted Psych mental status grossly normal Assessment & Plan Assessment/Plan (1) Acute HFrEF (heart failure with reduced ejection fraction): PLAN: Plan Patient is a 44-year-old female who presented to [facility] ED on 11/02/24 with worsening shortness of breath with exertion and increased leg swelling. 1. New onset acute HFrEF with small LV thrombus ? Cardiology consulted. Presented with worsening shortness of breath with volume overload. CTA chest showed mild cardiomegaly, moderate right and small left pleural effusions with multifocal groundglass opacities consistent with pulmonary edema. BNP 4866. Echo on 11/03 showed EF 20%, moderately dilated LV, severe global hypokinesis of LV, suspected small LV apical thrombus, no valvular disease. EKG on admit showed T wave inversion in lateral leads; notably troponins were negative. Started on IV Lasix 40 mg 3 times daily on admit with heavy urine output; developed worsening sinus tachycardia and appeared dry on afternoon of 11/03, diuresis held and given 1 L of IV fluid back. Monitor daily BMP and urine output. Per cardiology, will keep n.p.o. at midnight with plan for left heart cath for further evaluation tomorrow. Started on heparin drip on 11/03 as well. Continue low-dose Lopressor that was initiated on admission as well. Will likely plan to transition this to Toprol and start MARI inhibitor as able on discharge. 2. Sinus tachycardia ? Sinus tachycardia to the 120s on admit, improved with initiation of Lopressor and with diuresis. However, developed worsening sinus tachycardia on the afternoon of 11/03 suspected secondary to overdiuresis, given IV fluids back as noted above. Continue to monitor cardiac telemetry. 3. Right upper quadrant pain with mild transaminitis ? Suspect related to passive congestion in setting of heart failure. Ultrasound showed generalized hepatomegaly but was otherwise unremarkable. No further GI workup needed, continue management as above. 4. Elevated BP without diagnosis of hypertension ? Started on Lopressor on admit. Cardiology following as above. Will likely plan to transition to Toprol and add MARI and/or Aldactone on discharge. DVT prophylaxis: Not indicated, on heparin drip CODE STATUS: Full code, verified Expected disposition: Home, TBD Total clinical time spent by myself addressing the patient's medical issues, reviewing all the data, and collaborating with patient's care team: 35 minutes. Charges/Coding Visit Charges Inpatient E&M: 00626 Subs Hosp L2
--- NOTE | 2024-11-03 11:43 | CASEMGMT ---
TAO LE Assessment: Face to Face with pt for initial transition planning/care coordination assessment. TAO LE introduced self and role at [facility], pt voices understanding and consents to assessment. Pt is A&O x4 and answers all questions appropriately at this time. Pt sitting up in bed in no distress, sitting at bedside. Care providers, pharmacy, and demographics verified/updated. Strata: 1 Admitting Dx: Hypoxic/pleural effusions PCP: Peggy Specialists: Peggy [facility] Pharmacy: [facility] Insurance: [employer] Prescription Benefit: yes LNOK: Ankush Living Arrangements: Pt lives with and kids in a multi-level home with 6 - 7 steps to enter. ADLs: Pt states I with ADLs and IADLs. Transportation: Pt hires dirver for transportation. DME: Denies HHC/SNF: Denies Hx of. Pt states no concerns with going home at time of dc. Pt states no further concerns/needs. CM to follow. Advised pt to ask CM if any further question/concerns/needs arise, voices understanding. Pt Goal: Home Plan: Home with family support. Follow for safe DC plan. Ilsa BURGER CM
[2024-11-03 13:59] LABS: Troponin T High Sens 2 HR 11 ng/L (<=14)
[2024-11-03] MEDS: Lactated Ringers 1,000 ML 250 ML IV (17:26)
[2024-11-03 17:51] LABS: International Normalized Ratio 1.1; Prothrombin Time (Protime)PT. 14.5 SECONDS (11.7-14.9)
[2024-11-03 17:52] LABS: Partial Thromboplast Time 31.8 Seconds (24.1-36.2)
[2024-11-03] MEDS: HEPARIN/D5w 25,000 UNITS 25,000 UNITS/250 ML IV.SOLN. 10 UNITS CONT INF (18:49)
[2024-11-04] VITALS (15 sets, daily range): BP systolic 100–128; BP diastolic 73–98; PULSE 89–120; RESP 16–18; TEMP 36.4–36.6; O2SAT 94–97; BMI 22.3
[2024-11-04 01:12] LABS: Partial Thromboplast Time 49.1 Seconds (24.1-36.2)
[2024-11-04] MEDS: Heparin Injection (Vial) 5,000 UNIT/ML VIAL IV (01:52)
[2024-11-04 05:26] LABS: Anion Gap 12 (5-15); BUN 13 mg/dL (4-19); BUN/Creat Ratio 19.9 RATIO (10-20); Calcium,Total 8.8 mg/dL (7.6-11.0); Carbon Dioxide 27.8 mmol/L (21.0-32.0); Chloride 100 mmol/L (98-108); Creatinine, Serum 0.65 mg/dL (0.70-1.20); EST Glomerular Filtration Rate 110 (>60); Estimated Creatinine Clearance 113.02 ml/min (50-250); Glucose 100 mg/dL (70-99); Sodium Level 139 mmol/L (133-145)
--- NOTE | 2024-11-04 05:55 | EKG12_ITS ---
Test Reason : PCI Blood Pressure : */* mmHG Vent. Rate : 121 BPM Atrial Rate : * BPM P-R Int : * ms QRS Dur : 78 ms QT Int : 414 ms P-R-T Axes : * -48 52 degrees QTcB Int : 587 ms Critical Test Result: Long QTc Accelerated Junctional rhythm with retrograde conduction Left anterior fascicular block Minimal voltage criteria for LVH, may be normal variant ( [place] product ) Anterior infarct , age undetermined Abnormal ECG When compared with ECG of 04-Nov-2024 05:50, MANUAL COMPARISON REQUIRED DATA IS UNCONFIRMED Confirmed by PERLITA YEN, ARGELIA ([id number]), magazine editor EDWARD ESCALONA ([id number]) on 11/05/2024 1:22:56 PM Referred By: Confirmed By: ARGELIA BHAT MD
[2024-11-04] MEDS: Potassium Chloride Oral Tablet 20 MEQ 40 MEQ PO (07:43)
[2024-11-04] MEDS: Metoprolol Tartrate 25 MG Tablet PO (07:43)
[2024-11-04 08:39] LABS: Partial Thromboplast Time 79.6 Seconds (24.1-36.2)
[2024-11-04] MEDS: Metoprolol(XL)Succ 25 MG Tablet PO (08:52)
[2024-11-04] MEDS: Lactated Ringers 1,000 ML 250 ML IV (08:53)
[2024-11-04] MEDS: Losartan Potassium 25 MG Tablet PO (08:53)
--- NOTE | 2024-11-04 10:40 | PN.HOSP_ITS ---
Reason for Visit Reason for Visit: Diagnoses Secondary polycythemia (11/02/24) Acute systolic (congestive) heart failure (11/02/24) Pleural effusion, not elsewhere classified (11/02/24) Tachycardia, unspecified (11/02/24) Elevated blood-pressure reading, without diagnosis of hypertension (11/02/24) Orthopnea (11/02/24) Other forms of dyspnea (11/02/24) Edema, unspecified (11/02/24) Other specified abnormal findings of blood chemistry (11/02/24) Abnormal electrocardiogram [ECG] [EKG] (11/02/24) Subjective Subjective Saw patient at bedside this morning, present. Patient sitting back comfortably in bed, conversing normally, in no acute distress. Was tachycardic to 110s this morning and additional IV fluids was given. Patient currently feels fine, denies any lightheadedness/dizziness or palpitations. Feels slightly anxious about the upcoming heart cath today but otherwise denies any new concerns. Objective Data Objective Data Vital Signs: Vital Signs Temp Pulse Resp BP Pulse Ox O2 Del Method 97.9 F 120 H 17 115/92 H 97 Room Air 11/04/24 07:42 11/04/24 08:52 11/04/24 07:42 11/04/24 08:51 11/04/24 07:42 11/04/24 07:53 Oxygen Delivery Method Room Air Weight: 68.5 kg Body Mass Index (BMI) 22.3 Intake & Output: Intake and Output for Last 24 Hours 11/02/24 11/03/24 11/04/24 23:59 23:59 23:59 Intake Total 1000 / 1000 1600.00 / 1780.00 327.99 / 327.99 Balance 1000 / 1000 1600.00 / 1780.00 327.99 / 327.99 Lab / Micro Data 11/03/24 04:14 11/04/24 05:00 Labs: Laboratory Results - last 24 hr 11/03/24 06:13: Troponin T Hi Sens 2 Hr 11 11/03/24 17:30: PT 14.5, INR 1.1, APTT 31.8 11/04/24 00:54: APTT 49.1 H 11/04/24 05:00: Sodium 139, Potassium 3.0 L, Chloride 100, Carbon Dioxide 27.8, Anion Gap 12, BUN 13, Creatinine 0.65 L, Estim Creat Clear Calc 113.02, Est GFR (MDRD) Non-Af 110, BUN/Creatinine Ratio 19.9, Glucose 100 H, Calcium 8.8 11/04/24 08:00: APTT 79.6 H Radiography Diagnostic Testing: Radiology Impression Echocardiogram 11/02/24 10:26 Interpretation Summary Moderately dilated left ventricle. The estimated ejection fraction is 20 %. There is severe global hypokinesis of the left ventricle. There is evidence of diastolic dysfunction. Trivial mitral valve insufficiency. There appears to be a small LV apical thrombus Ordering Physician: Caitlyn Joel Performed By: Collin Rooney RCS Physical Exam Const alert, oriented x3, no apparent distress, average body habitus, healthy appearing and well nourished Constitutional Narrative: Pleasant middle-aged female, mildly fatigued appearing but otherwise sitting back comfortably in bed, conversing normally, in no acute distress. General Appearance: cooperative, comfortable, well kempt and well developed HEENT normocephalic, head/scalp atraumatic, hearing grossly normal bilaterally, nasal mucous membranes and turbinates normal and moist oral mucous membranes Eyes PERRL, EOMs intact bilaterally and conjunctivae normal Neck full ROM Chest inspection of chest normal Resp normal respiratory effort and no use of accessory muscles Resp Narrative: Breathing comfortably on room air at rest. Good breath sounds bilaterally throughout, no wheezing or crackles noted. Cardio no murmurs and peripheral pulses 2+ throughout Cardio Narrative: Tachycardic, regular rhythm. GI normal to inspection, nondistended, normoactive bowel sounds, soft to palpation, non-tender and non-distended Back/Spine normal ROM Extremity normal to inspection, full ROM and no pedal edema Skin no rashes or lesions noted Psych mental status grossly normal Assessment & Plan Assessment/Plan (1) Acute HFrEF (heart failure with reduced ejection fraction): PLAN: Plan Patient is a 44-year-old female who presented to [facility] ED on 11/02/24 with worsening shortness of breath with exertion and increased leg swelling. 1. New onset acute HFrEF with small LV thrombus ? Cardiology following. Presented with worsening shortness of breath with volume overload. CTA chest showed mild cardiomegaly, moderate right and small left pleural effusions with multifocal groundglass opacities consistent with pulmonary edema. BNP 4866. Echo on 11/03 showed EF 20%, moderately dilated LV, severe global hypokinesis of LV, suspected small LV apical thrombus, no valvular disease. EKG on admit showed T wave inversion in lateral leads; notably troponins were negative. Started on heparin drip on 11/03 for LV thrombus. Left heart cath planned for afternoon of 11/04, will follow-up on result. Was initiated on IV Lasix 40 mg 3 times daily on admission with heavy urine output; suspected she was overdiuresed with worsening sinus tachycardia so was given IV fluids back with some improvement. Will continue to hold diuresis for now. Transitioned from Lopressor to low-dose Toprol and losartan on 11/04, continue these for now. Appreciate further cardiology recommendations. 2. Sinus tachycardia ? Sinus tachycardia to the 120s on admit, improved with initiation of Lopressor and with diuresis. However, developed worsening sinus tachycardia on the afternoon of 11/03 suspected secondary to overdiuresis, given IV fluids back with improvement as noted above. Continue to monitor cardiac telemetry. 3. Right upper quadrant pain with mild transaminitis ? Suspect related to passive congestion in setting of heart failure. Ultrasound showed generalized hepatomegaly but was otherwise unremarkable. No further GI workup needed, continue management as above. 4. Elevated BP without diagnosis of hypertension ? Cardiology following as above. Started Lopressor on admit; transitioned to Toprol and losartan on 11/04. Will continue to monitor closely. DVT prophylaxis: Not indicated, on heparin drip CODE STATUS: Full code, verified Expected disposition: Home, TBD Total clinical time spent by myself addressing the patient's medical issues, reviewing all the data, and collaborating with patient's care team: 35 minutes. Charges/Coding Visit Charges Inpatient E&M: 13073 Subs Hosp L2
[2024-11-04 11:39] LABS: Internal QC Validated? YES +Cl - CLEAR BKGD; Pregnancy, Urine Negative Negative
--- NOTE | 2024-11-04 11:56 | NURSING ---
Report called to receiver/laborer Yee BURGER.
--- NOTE | 2024-11-04 13:32 | PCM.CONS.C ---
Assessment & Plan Assessment/Plan (1) Acute HFrEF (heart failure with reduced ejection fraction): PLAN: Could be tachycardia induced cardiomyopathy. Recommend increasing the beta-bere. Continue losartan at current dose. Patient will need a follow-up echo in about 3 months. I recommend EP consult as well. This can be done with [facility] at this time. If patient has persistent LV dysfunction despite maximal medical therapy and controlled heart rate then she may be a candidate for an AICD. (2) Tachycardia: PLAN: Tachycardia appears to be atrial tachycardia. Increase metoprolol succinate to 50 mg p.o. daily. (3) LV (left ventricular) mural thrombus: PLAN: Patient will need to be on Coumadin or one of the newer oral anticoagulants. Explained both options to the patient and family. She could be started on one of the 2 medications based on their preference. Explained to the family that if patient's LV function improves to normal by controlling the heart rate and if there is no LV apical thrombus on follow-up echo then she could be off the anticoagulation. HPI Consult Data Date of Consult: 11/04/24 HPI Narrative Reason for Consultation: Cardiomyopathy HPI Narrative: VIRIDIANA WICK, is a 44 F who presents with shortness of breath, leg swelling. She has also been having palpitations. Patient was started on IV Lasix and her symptoms improved. 2D echo revealed severe LV dysfunction with global hypokinesis. Telemetry monitoring reveals episodes of atrial tachycardia with a heart rate of 120-140s. These episodes appear to be a few hours at times. She underwent coronary angiography which revealed no significant coronary artery disease. 2D echo also revealed LV apical thrombus. [facility] Medical History no medical history Home Medications ?Medication ?Instructions ?Recorded ?Last Taken ?Type REDOX 4 oz PO DAILY SUPP 11/02/24 11/01/24 History aloe vera 25 mg capsule 25 mg PO DAILY 11/02/24 11/01/24 History vitamin B complex (Complex B-100 1 tab PO DAILY 11/02/24 11/01/24 History tablet,extended release) Allergy/AdvReac Type Severity Reaction Status Date / Time No Known Allergies Allergy Verified 11/02/24 05:51 Family History (Updated 11/02/24 @ 16:[address] Caitlyn Joel DO) Other Heart disease Family History no significant family his Surgical History no surgical history Social History (Updated 11/02/24 @ 16:[address] Caitlyn Joel DO) household members: family housing: house current occupational status: unemployed other: [facility] Smoking Status: Never smoker alcohol intake: never substance use type: does not use Physical Exam Const alert and oriented x3 HEENT normocephalic Resp normal respiratory effort Cardio regular rhythm Extremity no pedal edema Risk Stratification Risk Stratification Applicable: No Charges/Coding Visit Charges Inpatient E&M: 62298 Init Hosp L2 Objective Data Vital Signs: Vital Signs Temp Pulse Resp BP Pulse Ox O2 Del Method 97.9 F 106 H 17 128/96 H 97 Room Air 11/04/24 07:42 11/04/24 12:02 11/04/24 12:02 11/04/24 12:02 11/04/24 12:02 11/04/24 12:02 Oxygen Delivery Method Room Air Weight: 151 lb 0.266 oz Body Mass Index (BMI) 22.3 Intake & Output: Intake and Output for Last 24 Hours 11/02/24 11/03/24 11/04/24 23:59 23:59 23:59 Intake Total 1000 / 1000 1600.00 / 1780.00 1155.32 / 1155.32 Balance 1000 / 1000 1600.00 / 1780.00 1155.32 / 1155.32 Lab / Micro Data 11/03/24 04:14 11/04/24 05:00 Labs: Laboratory Results - last 24 hr 11/03/24 06:13: Troponin T Hi Sens 2 Hr 11 11/03/24 17:30: PT 14.5, INR 1.1, APTT 31.8 11/04/24 00:54: APTT 49.1 H 11/04/24 05:00: Sodium 139, Potassium 3.0 L, Chloride 100, Carbon Dioxide 27.8, Anion Gap 12, BUN 13, Creatinine 0.65 L, Estim Creat Clear Calc 113.02, Est GFR (MDRD) Non-Af 110, BUN/Creatinine Ratio 19.9, Glucose 100 H, Calcium 8.8 11/04/24 08:00: APTT 79.6 H 11/04/24 11:24: Urine Test Negative Cardiology Labs/Tests 11/03/24 17:30: PT 14.5, INR 1.1, APTT 31.8 11/04/24 00:54: APTT 49.1 H 11/04/24 05:00: Sodium 139, Potassium 3.0 L, Chloride 100, Carbon Dioxide 27.8, Anion Gap 12, BUN 13, Creatinine 0.65 L, Est GFR (MDRD) Non-Af 110, BUN/Creatinine Ratio 19.9, Glucose 100 H, Calcium 8.8 11/04/24 08:00: APTT 79.6 H Rhythm: EKG: ECHO: Stress Test: Cardiac Cath: PCI: CT Surgery: Holter monitor: EPS: PPM: CXR: Chest CT Scan: Radiography Diagnostic Testing: Radiology Impression Echocardiogram 11/02/24 10:26 Interpretation Summary Moderately dilated left ventricle. The estimated ejection fraction is 20 %. There is severe global hypokinesis of the left ventricle. There is evidence of diastolic dysfunction. Trivial mitral valve insufficiency. There appears to be a small LV apical thrombus Ordering Physician: Caitlyn Joel Performed By: Collin Rooney RCS
[2024-11-04] MEDS: 0.9% Saline Lock 10 ML Syringe IV (16:43)
[2024-11-05] MEDS: HEPARIN/D5w 25,000 UNITS 25,000 UNITS/250 ML IV.SOLN. 10 UNITS CONT INF (02:13)
[2024-11-05 03:18] VITALS: BMI 22.4
[2024-11-05 03:28] VITALS: BP 102/76; PULSE 122; RESP 18; TEMP 36.6; O2SAT 97
[2024-11-05 08:09] VITALS: BP 108/83; PULSE 125; RESP 18; TEMP 36.1; O2SAT 98
[2024-11-05 08:12] VITALS: BP 108/83; PULSE 125
[2024-11-05] MEDS: Metoprolol(XL)Succ 50 MG Tablet PO (08:12)
[2024-11-05] MEDS: Losartan Potassium 25 MG Tablet PO (08:12)
--- NOTE | 2024-11-05 08:34 | PCM.PN.CARD ---
Subjective Subjective Patient seen and evaluated. Appears to be stable. Objective Data Vital Signs: Vital Signs Temp Pulse Resp BP Pulse Ox O2 Del Method 97.0 F L 125 H 18 108/83 H 98 Room Air 11/05/24 08:09 11/05/24 08:12 11/05/24 08:09 11/05/24 08:12 11/05/24 08:09 11/05/24 08:18 Oxygen Delivery Method Room Air Weight: 151 lb 7.321 oz Body Mass Index (BMI) 22.4 Intake & Output: Intake and Output for Last 24 Hours 11/03/24 11/04/24 11/05/24 23:59 23:59 23:59 Intake Total 1600.00 / 1780.00 1815.32 / 1815.32 68.84 / 68.84 Balance 1600.00 / 1780.00 1815.32 / 1815.32 68.84 / 68.84 Lab / Micro Data 11/03/24 04:14 11/04/24 05:00 Labs: Laboratory Results - last 24 hr 11/04/24 08:00: APTT 79.6 H 11/04/24 11:24: Urine Test Negative 11/05/24 01:30: APTT 65.0 H Cardiology Labs/Tests 11/04/24 08:00: APTT 79.6 H 11/05/24 01:30: APTT 65.0 H Rhythm: EKG: ECHO: Stress Test: Cardiac Cath: PCI: CT Surgery: Holter monitor: EPS: PPM: CXR: Chest CT Scan: Physical Exam Const alert, oriented x3 and no apparent distress General Appearance: cooperative HEENT hearing grossly normal bilaterally Head and Scalp: atraumatic Eyes EOMs intact bilaterally Neck General: normal visual inspection Chest inspection of chest normal and palpation of chest normal Resp normal respiratory effort Auscultation: clear to auscultation bilaterally Cardio regular rate, regular rhythm, S1 normal heart sound and S2 normal heart sound Jugular Venous Distention: JVD GI normal to inspection, nondistended, normoactive bowel sounds Extremity normal capillary refill and no pedal edema Peripheral Pulses: Yes pulses 2+ throughout and femoral pulses present Skin no rashes or lesions noted Neuro oriented x3 and CN's II-XII intact bilaterally Psych Appearance: grossly normal and appropriate Assessment & Plan Assessment/Plan (1) Cardiomyopathy: PLAN: Patient appears to have a nonischemic cardiomyopathy. At the moment she appears to be quite comfortable and the plan to be to continue guideline directed medical therapy and follow-up in the office. (2) LV (left ventricular) mural thrombus: PLAN: There is a suggestion of left ventricular mural thrombus. The echocardiogram can be repeated in a few weeks after anticoagulation to see whether there is any improvement. Further recommendations will then be made.
[2024-11-05 08:37] LABS: Hematocrit 45.8 % (37-47); Hemoglobin 14.9 g/dL (12.0-15.0); Mean Corp Hgb Conc 32.5 g/dL (32-36); Mean Corpuscular Hgb 29.4 pg (27.0-32.0); Mean Corpuscular Volume 90.3 fL (81-99); Mean Platelet Vol. 10.9 fl (6.2-12.0); Platelet Count 396 K/mm3 (150-450); RBC Distribution Width CV 13.7 % (11.6-14.6); RBC Distribution Width SD 45.2 fl (35.1-43.9); Red Blood Count 5.07 M/mm3 (4.2-5.4); White Blood Count 7.8 K/mm3 (4.4-11.0)
[2024-11-05 08:41] LABS: Scan Indicated on CBC? Y/N NO
[2024-11-05] MEDS: APIXABAN 5 MG TABLET PO (08:45)
[2024-11-05 09:19] LABS: ALB/GLOB Ratio 1.5 RATIO (0.9-2.4); AST(SGOT) 28 U/L (<=31); Alanine Aminotransfer ALT/SGPT 43 U/L (<=34); Albumin, Serum 4.1 g/dL (3.5-5.0); Alkaline Phosphatase 52 U/L (35-104); Anion Gap 12 (5-15); BUN 11 mg/dL (4-19); BUN/Creat Ratio 15.7 RATIO (10-20); Calcium,Total 9.1 mg/dL (7.6-11.0); Carbon Dioxide 24.7 mmol/L (21.0-32.0); Chloride 105 mmol/L (98-108); EST Glomerular Filtration Rate 108 (>60); Estimated Creatinine Clearance 104.95 ml/min (50-250); Globulin 2.7 g/dL (2.2-4.2); Glucose 112 mg/dL (70-99); Potassium 3.8 mmol/L (3.3-5.1); Protein, Total 6.8 g/dL (5.9-8.4); Sodium Level 142 mmol/L (133-145); Total Bilirubin 0.54 mg/dL (0.00-1.30)
[2024-11-05 09:28] LABS: Magnesium 2.1 mg/dL (1.5-2.2); Phosphorus 3.1 mg/dL (2.7-4.5)
--- NOTE | 2024-11-05 10:00 | EKG12_ITS ---
Test Reason : Blood Pressure : */* mmHG Vent. Rate : 104 BPM Atrial Rate : 104 BPM P-R Int : 126 ms QRS Dur : 82 ms QT Int : 362 ms P-R-T Axes : 30 -48 167 degrees QTcB Int : 476 ms Sinus tachycardia Left anterior fascicular block Left ventricular hypertrophy with repolarization abnormality ( Sokolow-Fischer , Amado product ) Abnormal ECG When compared with ECG of 05-Nov-2024 05:46, MANUAL COMPARISON REQUIRED DATA IS UNCONFIRMED Confirmed by PERLITA YEN, ARGELIA ([id number]), book or script editor EDWARD ESCALONA ([id number]) on 11/05/2024 1:22:13 PM Referred By: SHANON Confirmed By: ARGELIA BHAT MD
--- NOTE | 2024-11-05 11:29 | DCINST_ITS ---
Discharge Instructions Diet Discharge Diet: 8 Cup Fluid Restriction and 4000 mg Sodium Diet DC O2, CPAP, BIPAP needs Home O2 Discharge instructions: No Dressing / Incision Discharge Activity: No Restrictions Follow Up Care Test Results: Test results from this visit will be discussed in further detail at your follow- up appointment, if applicable. Discharge Plan Admission Admit Date/Time: 11/02/24 09:38 Primary Reason for Your Visit: shortness of breath and abdominal pain Attending Provider: Veto Ngo Primary Care Provider: Dave Woods Consulting Providers: Caitlyn Joel; Betito Garcias Instructions Patient Instructions: HF Goals for Management, Heart Failure Make Changes Diet Additional Instructions / Restrictions: Please take your new medications as noted below. Please see the instructions here on further recommendations for dietary management and general heart failure management. Follow-up with your cardiology doctor in the office in the next few weeks. Discharge Orders/Prescriptions Prescriptions: New metoprolol succinate 50 mg Tablet Extended Release 24 Hr 50 mg PO DAILY 30 Days Qty: 30 2RF losartan 25 mg Tablet 25 mg PO DAILY 30 Days Qty: 30 2RF Eliquis 5 mg Tablet 5 mg PO BID 30 Days Qty: 60 2RF furosemide [Lasix] 20 mg tablet 20 mg PO DAILY PRN (Reason: edema) Qty: 30 0RF Continued Complex B-100 Tablet Extended Release 1 tab PO DAILY aloe vera 25 mg capsule 25 mg PO DAILY REDOX liquid 4 oz PO DAILY Rx Instructions: CONTAINS: CHLORIDE 193MG, SODIUM 125MG. Referrals / Follow Up: Singh Cooper MD [Med Staff - Active Staff] - Dave Woods DO [Primary Care Provider] - Disposition Disposition (needs filled in before D/C Order can be placed): Home, Self Care
--- NOTE | 2024-11-05 11:29 | PCM.DC.SUM ---
Providers Date of Admission: 11/02/24 Date of Discharge: 11/05/24 Primary Care Physician: Dr. Dave Woods, Consultations 11/03/24 16:31 Consult: Cardiology Routine Consulting Provider: Betito Garcias Reason for Consult: new onset severe HFrEF w/ concern for LV thrombus EMERGENT Consult: No MD Notified: Yes Date Notified: 11/03/24 Time Notified: 16:49 Method of Notification: Text Reason For Visit: HYPOXIC/PLEURAL EFFUSIONS Diagnosis Discharge Diagnosis (1) Cardiomyopathy: Status: Acute Code(s): I42.9 - Cardiomyopathy, unspecified (2) LV (left ventricular) mural thrombus: Status: Acute Code(s): I51.3 - Intracardiac thrombosis, not elsewhere classified Medications at Discharge Home Medications REDOX 4 oz PO DAILY SUPP 11/02/24 aloe vera 25 mg capsule 25 mg PO DAILY supplement 11/02/24 vitamin B complex (Complex B-100 tablet,extended release) 1 tab PO DAILY vitamin 11/02/24 apixaban 5 mg tablet (Eliquis) 5 mg PO BID 30 days #60 tabs 11/05/24 furosemide 20 mg tablet (Lasix) 20 mg PO DAILY PRN edema #30 tabs 11/05/24 losartan 25 mg tablet 25 mg PO DAILY 30 days #30 tabs 11/05/24 metoprolol succinate 50 mg tablet,extended release 24 hr 50 mg PO DAILY 30 days #30 tabs 11/05/24 Hospital Course Operations None Procedures Cardiac catheterization, EKG, Transthoracic echo and - (Chest x-ray, CTA chest, gallbladder ultrasound) Summary of Care Provided Minutes Spent on Discharge: 35 Hospital Course: Patient is a 44-year-old female who presented to [facility] ED on 11/02/24 with worsening shortness of breath with exertion and increased leg swelling. Hospital course as noted below. Patient discharged home in stable condition on 11/05. 1. New onset acute HFrEF with small LV thrombus ? Cardiology followed. Presented with worsening shortness of breath with volume overload. CTA chest showed mild cardiomegaly, moderate right and small left pleural effusions with multifocal groundglass opacities consistent with pulmonary edema. BNP 4866. Echo on 11/03 showed EF 20%, moderately dilated LV, severe global hypokinesis of LV, suspected small LV apical thrombus, no valvular disease. EKG on admit showed T wave inversion in lateral leads; notably troponins were negative. Left heart cath on 11/04 with no findings of CAD. 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 Discharged on Toprol 50 mg daily and losartan 25 mg daily. Treated with heparin drip while inpatient for LV thrombus and discharged on Eliquis with plan for at least 3 months of therapy. Also discharged on Lasix 20 mg daily as needed. Plan is for close outpatient follow-up with cardiology and repeat echo in the next few weeks. 2. Sinus tachycardia, improving ? Sinus tachycardia to the 120s on admit. Improved somewhat with initiation of Lopressor and with diuresis but then worsened suspected due to overdiuresis. Given IV fluids back with some improvement. However, cardiology suspects that patient has tachycardia mediated cardiomyopathy as noted above due to persistent sinus tachycardia. Discharged on p.o. Toprol with plan for close outpatient follow-up with cardiology has noted above. 3. Right upper quadrant pain with mild transaminitis, improved ? Suspect related to passive congestion in setting of heart failure. Ultrasound showed generalized hepatomegaly but was otherwise unremarkable. No further GI workup needed, continue management as above. 4. Elevated BP without diagnosis of hypertension ? Cardiology followed as above. Started Lopressor on admit; transitioned to Toprol and losartan on 11/04 and will continue on discharge as noted above. Total clinical time spent by myself addressing the patient's medical issues, reviewing all the data, and collaborating with patient's care team: 35 minutes. Physical Exam Const alert, oriented x3, no apparent distress, average body habitus, healthy appearing and well nourished Constitutional Narrative: Pleasant middle-aged female, energy improved from admission, sitting back comfortably in bed, conversing normally, in no acute distress. General Appearance: cooperative, comfortable, well kempt and well developed HEENT normocephalic, head/scalp atraumatic, hearing grossly normal bilaterally, nasal mucous membranes and turbinates normal and moist oral mucous membranes Eyes PERRL, EOMs intact bilaterally and conjunctivae normal Neck full ROM Chest inspection of chest normal Resp normal respiratory effort and no use of accessory muscles Resp Narrative: Breathing comfortably on room air at rest. Good breath sounds bilaterally throughout, no wheezing or crackles noted. Cardio no murmurs and peripheral pulses 2+ throughout Cardio Narrative: Tachycardic, regular rhythm. GI normal to inspection, nondistended, normoactive bowel sounds, soft to palpation, non-tender and non-distended Back/Spine normal ROM Extremity normal to inspection, full ROM and no pedal edema Skin no rashes or lesions noted Psych mental status grossly normal Weight / BMI Weight Weight: 68.7 kg Body Mass Index (BMI) 22.4 ABG / Lab / Microbiology Data 11/05/24 08:20 11/05/24 08:20 Laboratory: Laboratory Results - last 24 hr 11/05/24 01:30: APTT 65.0 H 11/05/24 08:20: WBC 7.8, RBC 5.07, Hgb 14.9, Hct 45.8, MCV 90.3, MCH 29.4, MCHC 32.5 D, RDW Std Deviation 45.2 H, RDW Coeff of Raquel 13.7, Plt Count 396, MPV 10.9, APTT 65.0 H, Sodium 142, Potassium 3.8, Chloride 105, Carbon Dioxide 24.7, Anion Gap 12, BUN 11, Creatinine 0.70, Estim Creat Clear Calc 104.95, Est GFR (MDRD) Non-Af 108, BUN/Creatinine Ratio 15.7, Glucose 112 H, Calcium 9.1, Phosphorus 3.1, Magnesium 2.1, Total Bilirubin 0.54, AST 28, ALT 43 H, Alkaline Phosphatase 52, Total Protein 6.8, Albumin 4.1, Globulin 2.7, Albumin/Globulin Ratio 1.5 D/C Instructions DC O2, CPAP, BIPAP Needs Home O2 Discharge instructions: No Meaningful Use Info Meaningful Use Meaningful Use Diagnoses (Choose all that apply): None applicable and CHF CHF MARI/ARB ordered at discharge?: Yes Documented LVEF (%): 20 Ischemic Stroke Statin Dosing Therapy Reference: STATIN DOSE THERAPY REFERENCE: * Patients > 75 years receive moderate or high dose statin therapy. * Patients 75 years or YOUNGER should receive HIGH intensity statin dose unless contraindicated. You will be required to document reason for non-treatment if statin daily dose does not meet guidelines. HIGH DOSE STATIN THERAPY DAILY Atorvastatin > than or = to 40 mg Rosuvastatin > than or = to 20 mg Amlodipine + Atorvastatin > than or = to 2.5/40 mg Ezetimibe + Simvastatin 10/80 mg Simvastatin 80mg Discharge Plan Admission Admit Date/Time: 04/27/25 09:38 Primary Reason for Your Visit: shortness of breath and abdominal pain Attending Provider: Veto Ngo Primary Care Provider: Dave Woods Consulting Providers: Caitlyn Joel; Betito Garcias Instructions Patient Instructions: HF Goals for Management, Heart Failure Make Changes Diet Additional Instructions / Restrictions: Please take your new medications as noted below. Please see the instructions here on further recommendations for dietary management and general heart failure management. Follow-up with your cardiology doctor in the office in the next few weeks. Discharge Orders/Prescriptions Prescriptions: New metoprolol succinate 50 mg Tablet Extended Release 24 Hr 50 mg PO DAILY 30 Days Qty: 30 2RF losartan 25 mg Tablet 25 mg PO DAILY 30 Days Qty: 30 2RF Eliquis 5 mg Tablet 5 mg PO BID 30 Days Qty: 60 2RF furosemide [Lasix] 20 mg tablet 20 mg PO DAILY PRN (Reason: edema) Qty: 30 0RF Continued Complex B-100 Tablet Extended Release 1 tab PO DAILY aloe vera 25 mg capsule 25 mg PO DAILY REDOX liquid 4 oz PO DAILY Rx Instructions: CONTAINS: CHLORIDE 193MG, SODIUM 125MG. Referrals / Follow Up: Singh Cooper MD [Med Staff - Active Staff] - Dave Woods DO [Primary Care Provider] - Disposition Disposition (needs filled in before D/C Order can be placed): Home, Self Care Charges/Coding Visit Charges Inpatient E&M: 60240 Disch Hosp >30min
--- NOTE | 2024-11-05 13:44 | CASEMGMT ---
Patient has order for discharge. Patient is discharging on Eliquis. Patient does not have prescription coverage and 30 savings card was applied at [facility]. RN CM in to patient's room and updated regarding Eliquis cost and savings card. RN MIMI instructed patient to follow-up with operating engineer if medication is too expensive, patient voiced understanding. Patient denied further needs or concerns at discharge. Patient had no further questions.
--- NOTE | 2024-11-05 15:27 | CL.D_ITS ---
Patient Name: VIRIDIANA WICK Study Date: 11/04/2024 Performing: Pta Garcias MD Ht: 69 inches 175.26 cm : 1980 Wt: 151.2 lbs 68.5 kg Age: 44 Gender: female BSA: 1.83 PROCEDURE(S) PERFORMED [id number])[facility] CLINICAL PROFILE AND INDICATIONS Indications: Cardiomyopathy Heart Failure: Newly Diagnosed: Yes CONCLUSIONS No significant CAD RECOMMENDATIONS DESCRIPTION OF PROCEDURE The patient arrived to the procedure lab. The risks and benefits of the procedure as well as a full description of our services here and current unavailability of surgical backup were fully explained to the patient and/or their significant other prior to the catheterization. The Timeout was completed, verifying the correct patient and procedure. The patient's procedural site was prepped and draped in the usual fashion. Local anesthetic was given subcutaneously to right radial region with Lidocaine 2%. Local anesthetic was given subcutaneously to right groin region with Lidocaine 2%. Using a modified Seldinger technique, and ultrasound guidance,arterial access was obtained via the right femoral artery, with Micropuncture set, arterial access was obtained via the right femoral artery, a 5Fr sheath was inserted. Left Coronary Artery selective angiography was performed in multiple views using a 5 Fr. JL4 catheter. Right Coronary Artery selective angiography was then performed in multiple views using a 5 Fr. JR 4 catheter.Contrast was injected through the sheath and the Right Iliac and Femoral artery were assessed for possible closure device.The arterial sheath was pulled and a Perclose closure device was deployed for hemostasis CORONARY ANGIOGRAPHY DOMINANCE: Right Dominant LEFT MAIN: Angiographically normal LEFT ANTERIOR DESCENDING ARTERY: Angiographically normal CIRCUMFLEX ARTERY: Angiographically normal RIGHT CORONARY ARTERY: Angiographically normal COMPLICATIONS No Complications PROCEDURE MEDICATIONS Fentanyl 50 mcg IV Versed 1 mg IV Versed 1 mg IV Fentanyl 50 mcg IV Heparin 25,000u / 250ml D5W @ 0 u/hr discontinued 11/04/2024 12:03:09 Potassium Chloride 40 mEq PO 11/04/2024 12:11:08 SUMMARY OF HEMODYNAMIC DATA Time AIR REST ECG 12:14:50 AO 155/100 (120) SA 13:06:13 Signed By Pat Garcias MD On 11/05/2024 15:26:35 Pat Garcias MD
[2024-11-05 15:31] VITALS: BP 119/93; PULSE 107; RESP 18; TEMP 36.4; O2SAT 98
--- NOTE | 2024-11-05 16:27 | PHA.DC_ITS ---
Pharmacy [place] Med Reconciliation Pharmacy Service has performed discharge medication reconciliation for this patient. Contacted Dr. Ngo, initial Eliquis Rx sent as 5mg BID, patient will need 10mg BID x 7 days then 5mg. He sent a new Rx to retail. Medication education papers prepared, patient was discharged before I was able to counseling psychologist. The patient's discharge medication list was reviewed for discrepancies and discrepancies were resolved. Medications at Discharge Home Medications REDOX 4 oz PO DAILY SUPP 11/02/24 aloe vera 25 mg capsule 25 mg PO DAILY supplement 11/02/24 vitamin B complex (Complex B-100 tablet,extended release) 1 tab PO DAILY vitamin 11/02/24 apixaban 5 mg (74 tabs) tablets in a dose pack (Eliquis DVT-PE Treat 30D Start) See Rx Instructions PO .COMPLEX #74 tabs 11/05/24 furosemide 20 mg tablet (Lasix) 20 mg PO DAILY PRN edema #30 tabs 11/05/24 losartan 25 mg tablet 25 mg PO DAILY 30 days #30 tabs 11/05/24 metoprolol succinate 50 mg tablet,extended release 24 hr 50 mg PO DAILY 30 days #30 tabs 11/05/24
== END 2024-11-05 15:43 | disposition home or self-care (01) | DRG 302 ==
LOC: ED 09:24 → PCU 09:53
PROVIDERS: Emergency Medicine; Family Medicine; Internal Medicine; Specialist; Admitting Provider Internal Medicine; Emergency Provider Emergency Medicine; PCP Family Medicine; Visit Provider Hospitalist
DX: I51.3 Intracardiac thrombosis, not elsewhere classified (principal); I50.21 Acute systolic (congestive) heart failure; J81.1 Chronic pulmonary edema; R16.0 Hepatomegaly, not elsewhere classified; I48.91 Unspecified atrial fibrillation; R03.0 Elevated blood-pressure reading, without diagnosis of hypertension; R10.11 Right upper quadrant pain; R94.31 Abnormal electrocardiogram [ECG] [EKG]; R06.01 Orthopnea; R79.89 Other specified abnormal findings of blood chemistry; R74.01 Elevation of levels of liver transaminase levels
CPT/HCPCS: 36415; 71045; 71275; 76705; 80048; 80053; 80061; 80076; 81001; 81025; 83690; 83735; 83880; 84100; 84439; 84443; 84484; 85025; 85027; 85379; 85610; 85730; 93005; 93306; 93454; 99152; 99153; 99252; 99284; C1894; Q9957; Q9967; A4216; C1760; C1769; C8929; G0463; J1940; J2405